=== PATIENT | female | born 1955 | race Caucasian/White ===

== ENCOUNTER 2021-03-24 13:45 | Emergency (ER) | payer OTHER ==
[~2021-03-24] VITALS: Ht 154.9 cm; Wt 88.5 kg
[2021-03-24] MEDS ORDERED: ARMOUR THYROID15 MG PO (16:38)
[2021-03-24] MEDS ORDERED: LOSARTAN POTASS25 MG PO (16:38)
== END 2021-03-24 19:32 | disposition home or self-care (01) ==
LOC: ED 13:45
DX: U07.1 COVID-19 (principal); I10 Essential (primary) hypertension; Z23 Encounter for immunization; Z88.1 Allergy status to other antibiotic agents; Z79.899 Other long term (current) drug therapy
CPT/HCPCS: 99283-25; C9803; M0243; Q0244; U0003